=== PATIENT | female | born 1995 | race African-American/Black ===

== ENCOUNTER → 2019-06-15 | Outpatient (CLI) | payer OTHER ==
--- NOTE | 2019-06-15 15:50 | 2DMMODE ---
[facility] [address] [place] [address] 2 D/M-MODE ECHOCARDIOGRAM Name: AYO BAUTISTA Room #: REG [facility]#: [id number] ������������� Admission: 06/15/19 ������������� Attend Phys: Cyrus Martin Discharge: ��� ������������� ��� Date of : 89 Date of Service: 06/15/19 1549 �� Report #: [id number] �������� ��������������������������������������������[id number] THIS REPORT FOR: //name// APPROVED REPORT Study performed: 06/15/2019 14:12:23 EXAM: Comprehensive 2D, Doppler, and color-flow Echocardiogram Patient Location: Out-Patient Status: routine BSA: 1.48 HR: 73 bpm BP: 120/64 mmHg Rhythm: NSR Other Information Study Quality: Good Indications POTS Syndrome. 2D Dimensions RVDd: 27.94 mm IVSd: 8.68 (7-11mm) LVOT Diam: 19.55 (18-24mm) LVDd: 38.96 mm PWd: 7.43 (7-11mm) Ascending Ao: 29.97 (22-36mm) LVDs: 23.82 (25-40mm) Aortic Root: 28.32 mm Volumes Left Atrial Volume (Systole) Single Plane 4CH: 28.98 mL Single Plane 2CH: 46.55 mL LA ESV Index: 29.00 mL/m2 Aortic Valve AoV Peak Dwaine.: 1.07 m/s AO Peak Gr.: 4.56 mmHg LVOT Max P.00 mmHg LVOT Max V: 1.00 m/s KIRA Vmax: 2.81 cm2 Mitral Valve E/A Ratio: 1.6 MV Decel. Time: 149.51 ms MV E Max Dwaine.: 0.83 m/s [facility] [address] [place] [address] 2 D/M-MODE ECHOCARDIOGRAM Name: AYO BAUTISTA Room #: REG [facility]#: [id number] ������������� Admission: 06/15/19 ������������� Attend Phys: Cyrus Martin Discharge: ��� ������������� ��� Date of : 89 Date of Service: 06/15/19 1549 �� Report #: [id number] �������� ��������������������������������������������[id number] MV A Dwaine.: 0.51 m/s MV PHT: 43.36 ms IVRT: 50.75 ms Pulmonary Valve PV Peak Dwaine.: 1.05 m/s PV Peak Gr.: 4.44 mmHg Pulmonary Vein P Vein S: 0.62 m/s P Vein D: 0.65 m/s P Vein S/D Ratio: 0.95 Tricuspid Valve RAP Estimate: 5.00 mmHg Left Ventricle The left ventricle is normal size. There is normal LV segmental wall motion. There is normal left ventricular wall thickness. The left ventricular systolic function is normal. The left ventricular ejection fraction is within the normal range. LVEF is 60%. The left ventricular diastolic function is normal. Right Ventricle The right ventricle is normal size. The right ventricular systolic function is normal. Atria The left atrium size is normal. The right atrium size is normal. Aortic Valve The aortic valve is normal in structure. No aortic regurgitation is present. There is no aortic valvular stenosis. Mitral Valve The mitral valve is normal in structure. Trace mitral regurgitation. No evidence of mitral valve stenosis. Tricuspid Valve The tricuspid valve is normal in structure. Trace tricuspid regurgitation. Pulmonic Valve The pulmonary valve is normal in structure. Trace to mild pulmonic regurgitation. [facility] [address] [place] [address] 2 D/M-MODE ECHOCARDIOGRAM Name: LILYAYO Room #: REG [facility]#: [id number] ������������� Admission: 06/15/19 ������������� [facility]end [facility] Dis[facility]: ��� ������������� ��� Date of : 89 Date of Service: 06/15/19 1549 �� Report #: [id number] �������� ��������������������������������������������[id number] Great Vessels The aortic root is normal in size. The ascending aorta is normal in size. IVC is normal in size and collapses >50% with inspiration. Pericardium There is no pericardial effusion. <Conclusion> The left ventricle is normal size. There is normal left ventricular wall thickness. The left ventricular systolic function is normal. The left ventricular ejection fraction is within the normal range. LVEF is 60%. The right ventricle is normal size. The aortic valve is normal in structure. The mitral valve is normal in structure. There is no pericardial effusion. ��������������������������������������������� <ELECTRONICALLY SIGNED> ���������������������������������������� By: Cyrus Martin MD ��������������������������������������������� 06/15/19 1549 1549 1549 Cyrus Martin MD /INF
== END ==
LOC: CV 14:05
DX: I37.1 Nonrheumatic pulmonary valve insufficiency (principal)

== ENCOUNTER → 2019-06-22 | Outpatient (CLI) | payer OTHER | END | disposition home or self-care (01) | LOC: CATH 11:05 | DX: R00.2 Palpitations (principal); R55 Syncope and collapse; F32.9 Major depressive disorder, single episode, unspecified; F41.9 Anxiety disorder, unspecified; G47.30 Sleep apnea, unspecified; R51 Headache; Z79.899 Other long term (current) drug therapy; Z98.890 Other specified postprocedural states ==